=== PATIENT | male | born 1965 | race Caucasian/White ===

== ENCOUNTER 2017-10-21 07:41 | Day surgery (SDC) | payer OTHER, SELFPAY ==
[2017-10-21 08:06] VITALS: BP 132/78; RESP 16; TEMP 37.7; O2SAT 97; BMI 23.6
[2017-10-21] MEDS: LACTATED RINGERS 1,000 ML 200 ML IV (08:28)
--- NOTE | 2017-10-21 09:13 | PM.HP.1 ---
History of Present Illness Date Patient Seen: 10/21/17 Time Patient Seen: 08:14 Chief complaint: [id number] Narrative: Patient is here for screening colonoscopy due to age. He is 52. He has never had a colonoscopy. Patient History Family & Social History Family History: Reviewed 10/21/17 by Jeovany Gage MD Social History: household members family,friend(s) lives independently Yes Tobacco & Substance use: Smoking Status Former smoker alcohol intake former Meds Home Medications Medication Instructions Recorded Confirmed Type bupropion HCl 200 mg PO BID #60 tab 09/01/17 09/16/17 Rx Allergies Allergy/AdvReac Type Severity Reaction Status Date / Time No Known Drug Allergies Allergy Unverified 10/21/17 08:22 Review of Systems Review of Systems All systems reviewed & are unremarkable except as noted in HPI and below Exam Vital Signs (past 8 hours): Vital Signs - 8 hr 10/21/17 08:06 Temperature 99.8 F H Respiratory Rate 16 Blood Pressure 132/78 H Pulse Oximetry 97 Pulse Oximetry 97 Oxygen Delivery Method Room Air Narrative Exam Narrative: Operative no apparent distress. Oral mucosa is pink and moist. Neck is supple. No nodes in neck supraclavicular areas. Lungs are clear to auscultation and equal to percussion. No rales or rhonchi. Heart regular rate and rhythm without murmur gallop. No bruit in the neck. Abdomen is scaphoid soft nontender without mass. Patient is alert and oriented x3. Assessment & Plan Plan: Assessment/Plan Narrative: I have discussed the procedure and the rationale with the patient including risks of bleeding, perforation which would necessitate a major operation, failure to find remove all lesions and the potential to tattoo. They appeared to understand and wished to proceed.
--- NOTE | 2017-10-21 09:17 | P.HP_ITS ---
History of Present Illness Date Patient Seen: 10/21/17 Time Patient Seen: 08:14 Chief complaint: [id number] Narrative: Patient is here for screening colonoscopy due to age. He is 52. He has never had a colonoscopy. Patient History Family & Social History Family History: Reviewed 10/21/17 by Jeovany Gage MD Social History: household members family,friend(s) lives independently Yes Tobacco & Substance use: Smoking Status Former smoker alcohol intake former Meds Home Medications Medication Instructions Recorded Confirmed Type bupropion HCl 200 mg PO BID #60 tab 09/01/17 09/16/17 Rx Allergies Allergy/AdvReac Type Severity Reaction Status Date / Time No Known Drug Allergies Allergy Unverified 10/21/17 08:22 Review of Systems Review of Systems All systems reviewed & are unremarkable except as noted in HPI and below Exam Vital Signs (past 8 hours): Vital Signs - 8 hr 3 10/21/17 08:06 Temperature 99.8 F H Respiratory Rate 16 Blood Pressure 132/78 H Pulse Oximetry 97 Pulse Oximetry 97 Oxygen Delivery Method Room Air Narrative Exam Narrative: Operative no apparent distress. Oral mucosa is pink and moist. Neck is supple. No nodes in neck supraclavicular areas. Lungs are clear to auscultation and equal to percussion. No rales or rhonchi. Heart regular rate and rhythm without murmur gallop. No bruit in the neck. Abdomen is scaphoid soft nontender without mass. Patient is alert and oriented x3. Assessment & Plan Plan: Assessment/Plan Narrative: I have discussed the procedure and the rationale with the patient including risks of bleeding, perforation which would necessitate a major operation, failure to find remove all lesions and the potential to tattoo. They appeared to understand and wished to proceed.
--- NOTE | 2017-10-21 09:19 | PM.PREOP ---
Pre-operative Note Interval Note Pre-op Check: History & Physical exam performed today H&P completed within 30 days and has changed as indicated here:: None ASA Class (for procedural sedation): I
--- NOTE | 2017-10-21 09:28 | SUR.OPER ---
to endo from opd via cart respirations unlabored iv patent positioned per self for procedure
[2017-10-21 09:56] VITALS: BP 112/79; PULSE 94; RESP 18; TEMP 36.7; O2SAT 94
[2017-10-21] MEDS: fentaNYL 250 MCG/5 ML INJ 300 MCG IV (09:59)
--- NOTE | 2017-10-21 09:59 | PM.OP.ENDO ---
Operative Date/Time/Diagnoses - Date of procedure: 10/21/17 Time of procedure: 10:00 Pre-op diagnosis: Screening exam. This is his 1st colonoscopy. Post-op diagnosis: same (Single sigmoid diverticulum seen. Small internal hemorrhoid.) Procedure & Clinicians Study performed: Colonoscopy Same procedure as scheduled: Yes Indications: Screening Surgeon: Jeovany Gage Procedure Notes SCOAP/Timeout: Performed Procedure in detail: The patient was placed in the left lateral decubitus position and underwent IV sedation directed by the surgeon consisting of fentanyl and Versed. Digital exam was unremarkable. Prostate flat.. The scope was inserted and advanced through the rectum into the sigmoid, descending, transverse, and ascending colon. A single sigmoid diverticulum was seen. No other lesions were seen.. The cecum was reached identified by the ileocecal valve and the appendiceal opening. The ileocecal valve was successfully cannulated. The terminal ileum was normal in appearance. The scope was gradually brought out. No Polyps were found . The scope ultimately was retroflexed in the rectum. The appearance was[normal except for 1 small hemorrhoid]. The scope was removed and the patient tolerated the procedure well Scope withdrawal time: A 7-1/2 minutes Sedation minutes: 28 Findings: diverticulosis Specimen(s): none sent Complications: none Recommendations: Colonscopy in 10 years
[2017-10-21] MEDS: MIDAZOLAM 5 MG/5 ML VIAL IV (10:00)
[2017-10-21 10:01] VITALS: BP 116/82; PULSE 92; RESP 11; O2SAT 96
--- NOTE | 2017-10-21 10:02 | P.OP.ENDO_ITS ---
Operative Date/Time/Diagnoses - Date of procedure: 10/21/17 Time of procedure: 10:00 Pre-op diagnosis: Screening exam. This is his 1st colonoscopy. Post-op diagnosis: same (Single sigmoid diverticulum seen. Small internal hemorrhoid.) Procedure & Clinicians Study performed: Colonoscopy Same procedure as scheduled: Yes Indications: Screening Surgeon: Jeovany Gage Procedure Notes SCOAP/Timeout: Performed Procedure in detail: The patient was placed in the left lateral decubitus position and underwent IV sedation directed by the surgeon consisting of fentanyl and Versed. Digital exam was unremarkable. Prostate flat.. The scope was inserted and advanced through the rectum into the sigmoid, descending , transverse, and ascending colon. A single sigmoid diverticulum was seen. No other lesions were seen.. The cecum was reached identified by the ileocecal valve and the appendiceal opening. The ileocecal valve was successfully cannulated. The terminal ileum was normal in appearance. The scope was gradually brought out. No Polyps were found . The scope ultimately was retroflexed in the rectum. The appearance was[normal except for 1 small hemorrhoid]. The scope was removed and the patient tolerated the procedure well Scope withdrawal time: A 7-1/2 minutes Sedation minutes: 28 Findings: diverticulosis Specimen(s): none sent Complications: none Recommendations: Colonscopy in 10 years
[2017-10-21 10:07] VITALS: BP 110/78; PULSE 89; RESP 14; TEMP 36.7; O2SAT 96
--- NOTE | 2017-10-21 10:07 | SUR.OPER ---
tolerated procedure well
[2017-10-21 10:16] VITALS: BP 126/74; PULSE 91; RESP 15; TEMP 37.4; O2SAT 94
== END 2017-10-21 10:18 | disposition home or self-care (01) ==
PROVIDERS: Specialist; Visit Provider Surgery
PROC: 0DJD8ZZ Inspection of Lower Intestinal Tract, Via Natural or Artificial Opening Endoscopic (ICD-10-PCS; CPT 45378; principal; 2017-10-21 08:45)
DX: Z12.11 Encounter for screening for malignant neoplasm of colon (principal); K64.8 Other hemorrhoids; K57.30 Diverticulosis of large intestine without perforation or abscess without bleeding; Z87.891 Personal history of nicotine dependence
CPT/HCPCS: 45378; 99152; 99153; J2250; J3010

== ENCOUNTER → 2017-11-10 12:03 | Outpatient (CLI) | payer OTHER, SELFPAY ==
[2017-11-10 12:46] LABS: Cholesterol 161 mg/dL (140-199); HDL Cholesterol 66 mg/dL (40-60); LDL Cholesterol Calculated 84 mg/dL (<100); Magnesium 1.9 mg/dL (1.6-2.3); Triglycerides 53 mg/dL (35-150)
[2017-11-10 13:04] LABS: Thyroid Stimulating Hormone 0.39 uIU/mL (0.47-4.68)
== END ==
PROVIDERS: PCP Family Medicine; Visit Provider Internal Medicine Cardiovascular Disease
DX: R94.31 Abnormal electrocardiogram [ECG] [EKG] (principal); Z13.220 Encounter for screening for lipoid disorders
CPT/HCPCS: 36415; 80061; 83735; 84443

== ENCOUNTER → 2017-12-02 09:27 | Outpatient (CLI) | payer OTHER, SELFPAY ==
[2017-12-02 10:43] LABS: Free T3, Triiodothyronine Free 3.86 pg/mL (2.77-5.27)
[2017-12-02 10:57] LABS: Thyroid Stimulating Hormone 0.61 uIU/mL (0.47-4.68)
== END ==
PROVIDERS: PCP Family Medicine; Visit Provider Family Medicine
DX: R79.89 Other specified abnormal findings of blood chemistry (principal)
CPT/HCPCS: 36415; 84439; 84443; 84481

== ENCOUNTER → 2023-05-05 08:10 | Outpatient (CLI) | payer OTHER, SELFPAY ==
--- NOTE | 2023-05-05 | DI.RAD.S_ITS ---
PROCEDURE: [place] SHOULDER INJECTION MR/CT RT INDICATIONS: RIGHT SHOULDER PAIN COMPARISON: None. TECHNIQUE: The indications, alternatives, benefits, risks, and complications of the procedure were explained to the patient. Written informed consent was obtained and placed in the chart. The shoulder was examined fluoroscopically and a site for needle placement chosen for entry into the glenohumeral joint from an anterior approach. The skin was prepped and draped in a sterile fashion, and 1% lidocaine infiltrated from skin down to joint capsule. A spinal needle was inserted into the glenohumeral joint, and a small amount of iodinated contrast media injected to confirm intra-articular placement of the needle tip. This was followed by approximately 12 mL dilute solution of a gadolinium containing MR contrast agent. The needle was removed and a dressing was applied. The patient was given postprocedural instructions and sent to the MR suite for MR imaging. FINDINGS: A single fluoroscopic spot image demonstrates intra-articular location of injected iodinated contrast. IMPRESSION: Successful fluoroscopically guided administration of dilute Gadolinium solution into the shoulder joint for MR arthrogram. Dictated by: Jasen Wood M.D. on 05/05/2023 at 12:23 Approved by: Jasen Wood M.D. on 05/05/2023 at 12:24
[2023-05-05] MEDS: SODIUM CHLORIDE 0.9 % 20 ML VIAL IV (09:00)
[2023-05-05] MEDS: LIDOCAINE 1% 20 ML INJ (09:00)
--- NOTE | 2023-05-05 09:14 | DI.MRI.S_ITS ---
PROCEDURE: MR SHOULDER RT W CON INDICATIONS: RIGHT SHOULDER PAIN TECHNIQUE: After the administration of 12 mL of dilute intra-articular Gadolinium contrast, oblique coronal T1 and T2 spin echo with fat saturation, oblique sagittal T1 spin echo with and without fat saturation, oblique sagittal T2 fast spin echo with fat saturation, axial T1 spin echo with fat saturation through the shoulder. COMPARISON: [facility] [place], CR, XR SHOULDER 2+ VIEWS RIGHT, 04/14/2023, 10:59. [facility], , [place] SHOULDER INJECTION MR/CT RT, 05/05/2023, 9:36. FINDINGS: Image quality: Excellent. Rotator cuff: There is moderate supraspinatus, infraspinatus and subscapularis tendinosis. There is partial-thickness tear of the distal supraspinatus tendon from the tendinous muscular junction to the footprint involving both articular and bursal surfaces. No high-grade tendon tear. No rotator cuff muscle atrophy on sagittal images. Bones and bursae: Hill-Sachs deformity is noted. No bone marrow contusions or fractures. Mild acromioclavicular and glenohumeral joint degeneration. The acromion demonstrates conventional anatomy, without an os acromiale. Capsule and soft tissues: There are postsurgical changes related to labral repair. The anterior inferior glenoid is irregular and truncated, consistent with chronic tear (Bankart lesion). There is intrasubstance contrast within the anterior inferior labrum. Cannot rule out recurrent tear. In addition, there is os tear of the anterior superior labrum, not extending to the biceps anchor. The long head of the biceps tendon demonstrates normal location and morphology. The rotator interval appears normal, without fibrosis. The coracohumeral ligament is of normal thickness. No intra-articular bodies. IMPRESSION: 1. Postsurgical changes related to prior labral repair. There is intrasubstance contrast within the anterior inferior labrum, cannot exclude recurrent tear. 2. There is tear of the anterior superior labrum not involving the biceps anchor. 3. Hill-Sachs deformity in humeral head. 4. Partial-thickness tear of the supraspinatus tendon. There is moderate tendinosis of supraspinatus, infraspinatus and subscapularis tendons. No tendon retraction or muscle atrophy. 5. Mild acromioclavicular and glenohumeral joint degeneration. Dictated by: Kristian Genao M.D. on 05/05/2023 at 12:37 Approved by: Kristian Genao M.D. on 05/06/2023 at 9:20
== END ==
LOC: RAD 08:11
PROVIDERS: PCP Family Medicine; Referring Provider Orthopaedic Surgery; Visit Provider Orthopaedic Surgery
DX: M75.111 Incomplete rotator cuff tear or rupture of right shoulder, not specified as traumatic (principal); M25.511 Pain in right shoulder; M19.011 Primary osteoarthritis, right shoulder; S43.431A Superior glenoid labrum lesion of right shoulder, initial encounter
CPT/HCPCS: 23350; 73222; 77002